=== PATIENT | female | born 1975 | race Caucasian/White ===

== ENCOUNTER 2017-03-18 03:33 | Inpatient (IN) | payer OTHER ==
[~2017-03-18] VITALS: Ht 167.6 cm; Wt 82.1 kg
[2017-03-18] MEDS ORDERED: Oxytocin 30 Units/500 mL LR 30 UNITS in IV Premix 1 EACH IV PRN (04:05)
[2017-03-18] MEDS ORDERED: Lactated Ringer's 1,000 ML IV PRN (04:05)
[2017-03-18] MEDS ORDERED: Hemorrhage Kit, Post Partum XX ONE (04:05)
[2017-03-18] MEDS ORDERED: Carboprost 250 mCg/mL Inj IM PRN (04:05)
[2017-03-18] MEDS ORDERED: Sodium Chloride LOK Flush 10 mL Syringe IVFLUSH PRN (04:05)
[2017-03-18] MEDS ORDERED: Methylergonovine 0.2 mg/mL Inj IM PRN (04:05)
[2017-03-18] MEDS ORDERED: Oxytocin 10 Unit/mL Inj IM PRN (04:05)
[2017-03-18 05:18] LABS: Mean Corpuscular Hemoglobin 30.8 pg (27.0-35.0); Mean Corpuscular Volume 91.1 fL (81-100)
--- NOTE | 2017-03-18 14:20 | PCM.HPOB ---
Subjective Referring Provider: Admitting Physician: Sofia Sierra MD Primary Care Physician: Nona Stubbs ND, LAc Attending Physician: Sofia Sierra MD Chief Complaint "water broke" History of Present History of Present Illness Ms. Rojas is a 41 y/o woman with history of antiphospholipid antibodies at 37 weeks 5 days gestation who presented to the [facility] for spontaneous rupture of membranes at around midnight. She states that it was a clear, pink tinged fluid. She is having regular contractions and they are getting more intense. Her SHANI is 04/03/2017 based on LMP. Her has been complicated by advanced maternal age and antiphospholipid antibody syndrome. She was also followed by maternal medicine. She has been having biweekly NSTs. She does not have fever, chills, headache, blurred vision, cough , sore throat, upper abdominal pain, worsening swelling, rash, or numbness/ tingling anywhere. She had a previous for breech position. She desires a trial of labor after and does not want any pain medications , including an epidural, at this time. A TOLAC consent was signed in the office. She only wants intermittent monitoring. She last took heparin at 9:30 PM yesterday. She reported to nursing that she will not accept antibiotics even if she is GBS positive. From her outpatient medical records, growth US done on 03/08/2017 showed bilateral renal pelviectasis (measuring 7 mm on the right and 8 mm on the left), BPD and head circumference are at the upper limits of normal, and EFW 62%. She refused a 1 hour glucose tolerance test, and instead, she was checking her blood sugars at home. She reported normal fasting and postprandial levels. She was switched from Lovenox to heparin 10,000 BID at 36 weeks gestation. She did not want to schedule an induction at 39-40 weeks. She is OK with general anesthesia if it is an emergency. She was undecided about receiving Tdap vaccine and did not receive it during . labs: blood type A positive, first trimester antibody screen negative, Pap smear negative, Varicella immune and Varicella IgM borderline, Rubella immune, RPR nonreactive, HBsAg negative, HIV nonreactive, chlamydia and gonorrhea negative, hepatitis C negative, TSH 1.560, HgbA1c 5.2%, GBS pending OB History: (5), Para (1), Term (0), Pre-term (0), ( 3), Living (1) Obstetrical Complications: Autoimmune Disease (antiphospholipid antibodies) Past Medical History Obstetrical History: History of 1 spontaneous and 2 missed abortions secondary to antiphospholipid antibody syndrome Primary section for breech position, her son was 40 weeks 0 days and weighed 6 lbs 14 oz, 18 years ago Gynecologic History: No history of STIs No history of abnormal Pap smears Medical History: Antiphospholipid antibody syndrome History of thyroid dysfunction, resolved and not taking medication Surgical History: Tonsillectomy [place] teeth removal Excess breast tissue removal Lasik Smoking Status: Never Smoker Hx Alcohol Use: No Hx Substance Use: No Past Family History Family History Diabetes mellitus on maternal side Mother, father, and 3 siblings in good health Review of Systems Constitutional: Y: Chills, Fever, Weakness Eyes: Denies: Blurred Vision, Double Vision, Vision Changes ENT: Denies: Throat Pain Cardiovascular: Denies: Chest Pain Respiratory: Denies: Cough Gastrointestinal: Denies: Abdominal Pain, Epigastric pain Genitourinary: Denies: Dysuria Musculoskeletal: Denies: Swelling Skin: Denies: Rash Neurological: Denies: Dizziness, Numbness Medications Home medications Pediatric multivitamin Heparin 10,000 BID (last dose taken at 09:30 PM on 03/17/17) Allergy Coded Allergies: No Known Allergies (Unverified , 03/18/17) Exam Vital Signs Vital signs from this mornin.6 degrees C, BP 112/77, HR 873 bpm, RR 18 Exam FHR 120-130s baseline with moderate variability, accelerations, no decelerations. Category I tracing. Uterine contractions every 3-5 minutes. Constitutional: Well-developed, Well-nourished, Normal habitus HEENT: Atraumatic, EOMI, Scleral Anicteric, Mucous Membr Moist/[place] Lungs: Clear to Auscultation, Normal Air Movement Heart: Exam Unremarkable, Regular Rate/Rhythm, Normal S1, Normal S2, No Murmurs /Rubs/Gallops Abdomen: Gravid, Normal bowel sounds, Soft, No tenderness Extremities: Pulses Palpable x4, Warm, No Edema Neurological/Psychiatric: Alert, Oriented X3, Cooperative, No Acute Distress Neuro: Grossly Neurologically Intact Additional Information Cervical exam this mornin cm dilated, 10 effacement, -3 position Labs/Diagnostics Labs Item Value Date Time White Blood Count 8.5 th/mm3 03/18/17 0500 Red Blood Count 3.80 mil/mm3 L 03/18/17 0500 Hemoglobin 11.7 g/dL L 03/18/17 0500 Hematocrit 34.6 % L 03/18/17 0500 Platelet Count 177 denia/L 03/18/17 0500 Maternal Blood Type: A (positive) Antibody Screen: Negative in first trimester Group B Strep Results: Sent, awaiting results Previous Infant with GBS: No Rubella: Immune Lab History: Negative for: Hx Gonorrhea, Hx HIV, Hx Herpes, Hx Syphilis OB Intrapartum Assessment/Plan Assessment 1. 41 y/o woman with history of antiphospholipid antibodies at 37 weeks 5 days gestation who presented to the [facility] for spontaneous rupture of membranes. has been complicated by advanced maternal age and antiphospholipid antibody syndrome. - Normal uterine activity with cervix dilated at 1 cm with -3 position. monitoring shows category I tracing. - Discussed and recommended augmentation of labor with patient this morning, which was around 7 hours after ROM, and patient refused at that time. Reviewed with patient the risks, including infection and blood clots, of delaying augmentation after ROM and being without heparin. Also advised patient that once Pitocin is started, FHR monitoring will have to be continuous. Patient requested at that time to wait 5-6 hours to see if she was ready for Pitocin later in the day. Discussed and recommended augmentation of labor a second time with patient in the afternoon, and patient refused Pitocin. Patient requested to wait until her arrives from [place] to start Pitocin. Reviewed risks of delaying augmentation of labor again with patient. Patient verbalized understanding of risks both times. - If FHR changes from category I tracing and safety is at risk, will likely need to involve risk management for input in how to proceed - GBS results pending. Patient, at this time, reports that she will refuse antibiotics if the results are positive. Will discuss again with patient if results come back positive. - Patient wants to have a natural labor and delivery. She does not want pain medications. She does not want an epidural. 2. Antiphospholipid antibody syndrome - Patient is to wear SCDs when in bed or in room, but if she is up walking, then she does not need to wear SCDs - Most likely, patient will be discharged on Lovenox and aspirin VTE Mechanical Devices: Intermittant Pneumatic CD Attending Statement This is a 41 yo female, at 39 week , ROM at 1am. She has history of one c/section for breech presentation 18 years ago and history of SAB x3. She was diagnosed APLS and was placed on levnox during . This was switched to heparin 10,000 bid. Last dose 9pm last night. She desire for ToLAC. I saw her for the last 2 visits in office and discussed extensively about issues regarding labor and delivery. I discussed with her again today for multiple times. It summarize as below: 1. Grossly ruptured at 1am, I strongly recommend to start IOL nena. I talked with her at 8am when I start my shift. She want to wait for at least 5-6 hrs until she feels she's ready for the induction. I discussed with her the reason to start induction nena, which include: try to decrease the risk of chorioamnionitis, decrease the chance of DVT by shortening the labor process. She understood but firmly declined induction at that time. I went to discuss with her again at 1pm. This is 12 hrs after ROM. She would like to wait for her to come in , who is on the way per patient and she predicted he should be arriving at 3pm. Again explained medical advice will be start nena. She still declined. Her eventually arrived at 6pm. She was examined by nurse. Her cervical examination had no change compare to 3am this morning, which was finger tip/long/bloatable head station. She agreed for induction with pitocin at 7pm. 2. GBS status. patient declined to have GBS done at 36 weeks. It was done at last visit and at admission, it was not resulted yet. Eventually the result was abtained from [place]. It was negative. 3. APLS: heparin last dose at 9pm last night. I discussed with anesthsoilogist. At this time, there 's no concern for increased risk of bleeding for epidural or spinal. But patient has talked with me in office and today again that she 99 % won't want to have epidural for pain. 4. ToLAC: patient has previous c/section for breech presentation. The calculated successful rate was about 70%. Although her cervix is not favorable , at her status now, I will still do pitocin induction. I did talk with her that long cervix with high station, she may have increased risk for failed induction. Patient understood. She understood that she may need c/ section for delivery. 5. monitor during labor: when she's not in active labor, I will allow her to have intermittent monitor. Continuous monitor will be needed when active labor started or pitocin started. As long as tracing and contraction could be monitored, she could ambulate. This note is written at 9:14pm. Jackie Zamarripa DO Mar 18, 2017 11:49 Sofia Sierra MD Mar 18, 2017 21:14
[2017-03-18] MEDS ORDERED: Lactated Ringer's 500 ML IV ONE (22:51)
[2017-03-18] MEDS ORDERED: Lactated Ringer's 1,000 ML IV SCH (22:51)
[2017-03-18] MEDS ORDERED: Ondansetron 2 mg/mL 2 mL Inj IVPUSH PRN (22:55)
[2017-03-18] MEDS ORDERED: EPHEDrine Sulfate 50 mg/mL Inj IVPUSH PRN (22:55)
[2017-03-18] MEDS ORDERED: Atropine 1 mg/10 mL (Code) Syringe IVPUSH PRN (22:55)
[2017-03-18] MEDS ORDERED: fentaNYL 2 mCg/mL-Bupiv 0.125% 100 ML EPIDURAL SCH (22:55)
--- NOTE | 2017-03-18 23:31 | PCM.HPANE ---
Patient Data Surgeon Admitting Provider:Sofia Sierra MD Attending Provider:Sofia Sierra MD Primary Care Physician:Nona Stubbs ND, LAc Other Provider: Reason for Visit Term Labor Check TERM LABOR CHECK Ht/WT & BMI Body Mass Index Allergies Coded Allergies: No Known Allergies (Unverified , 03/18/17) Past Anesthesia History Anesthesia History: Denies:: Abnormal Airway, Anesthesia Reactions, Difficult Intubation, Fam Anesthesia Reaction, Fam Malignant Hypertherm, Malignant Hyperthermia History History of ENT Problems?: No HEENT History: Denies:: Abnormal Airway Cataracts Difficult Intubation Dysphagia Glaucoma Hearing Problem Sinus Problem TMJ Denture Type: None Teeth Condition: Within Normal Limits Hx of Heart Problems?: No Cardiovascular History: Denies:: AICD Abdominal Aortic Aneurism Atrial Fibrillation Cardiac Surgery Chest Pain Congestive Heart Failure Coronary Artery Disease Edema Heart Murmur Hypertension Irregular Heartbeat Pacemaker Peripheral Vascular Rheumatic Fever Thrombophlebitis Valvular Heart Disease Hx of Respiratory Problem?: No Respiratory History: Denies:: Asthma COPD Chest Surgery Cough Dyspnea Emphysema Hemoptysis Oxygen Administration Pneumonia Pulmonary Embolism Tuberculosis Use of C-PAP Machine Use of Inhalers / NEBS Hx Neurologic Problems?: No Neurological History: Denies:: Alzheimer's Disease CVA Dementia Dizziness Headaches Multiple Sclerosis Parkinson's Disease Peripheral Neuropathy Seizures TIA Hx of GI Problems?: No Gastrointestinal History: Denies:: Cirrhosis Diverticulitis Gall Bladder Disease Gastroesphageal Reflux Gastrointestinal Bleeding Heartburn Hepatitis Hiatal Hernia Liver Disease Rectal Bleeding Hx of Problems?: No Genitourinary History: Denies:: HX of Hemodialysis Kidney Stones Urinary Tract Infection Female Hx: Positive for:: Currently Skin History: Denies:: History Skin Disorders? Pressure Ulcers Hx Musculoskeletal Problems?: No Musculoskeletal History: Denies:: Back Injury Degenerative Joint Fibromyalgia Joint Replacement Musculoskeletal Trauma Myasthenia Gravis Osteoarthritis Rheumatoid Arthritis Systemic Lupus Hx of Psycho/Social Problems?: No Psycho Social History: Denies:: Anxiety Bipolar Disorder Hx Depression Suicide Attempt Hx Surgeries?: Yes Hx Any Other Health Problems?: Yes (antiphospholipid antibody syndrome) Other History: Denies:: Cancer Endocrine Disease Hospitalization Thyroid Disease History Blood Transfusions: Denies:: Accept Blood Products? Blood Transfuse Reaction Blood Transfusions Hx Diabetes: No Hx Alcohol Use: NoHx Substance Use: No Smoking Status: Never Smoker Stop/Bang Risk Assessment Category Category 1A: Patient has history of documented sleep apnea, and HAS NOT received any narcotic, sedative or anesthesia administration during this stay. Category 1B: Patient has history of documented sleep apnea, and HAS received any narcotic , sedative or anesthesia administration during this stay Category 2: Patient has SUSPECTED Obstructive Sleep Apnea, and HAS received any narcotic , sedative or anesthesia administration during this stay. Category 3: Patient has SUSPECTED Obstructive Sleep Apnea and HAS NOT received narcotic, sedative or anesthesia administration during this stay. Category 4: Outpatient in Procedural Areas with known sleep apnea or who screen positive for High Risk via the STOP/BANG questionnaire. Exam Exam General Appearance: Alert, Oriented X3, Cooperative, No Acute Distress HEENT/AIRWAY: MP 2 Lungs: Clear to Auscultation, Normal Air Movement Heart: Exam Unremarkable, Regular Rate/Rhythm, Normal S1, Normal S2, No Murmurs /Rubs/Gallops Meds/Labs/Diagnostics Labs Test 03/18/17 05:00 White Blood Count 8.5th/mm3 (3.8-10.1) Red Blood Count 3.80mil/mm3 (3.90-5.20) Hemoglobin 11.7g/dL (12.0-15.6) Hematocrit 34.6% (35.0-46.0) Mean Corpuscular Volume 91.1fL (81-100) Mean Corpuscular Hemoglobin 30.8pg (27.0-35.0) Mean Corpuscular Hemoglobin Concent 33.8% (32.0-37.0) Red Cell Distribution Width 12.8% (12.3-15.4) Platelet Count 177bil/L (150-400) Plan Impression Patient chart reviewed, patient interviewed and anesthestic plan with risks, benefits, and alternatives discussed, and informed consent obtained. ASA Physical Status: ASA2 Mod Systemic Disease Anesthetic Plan: Epidural Bene/Risks/Altern/Consents: Yes HP Complete Prior to Induction: Yes Kavin Greenwood MD Mar 18, 2017 22:51
[2017-03-19] MEDS ORDERED: Sodium Chloride LOK Flush 10 mL Syringe IVFLUSH SCH (00:30)
[2017-03-19] MEDS ORDERED: Lactated Ringer's 1,000 ML IV SCH (05:18)
[2017-03-19] MEDS ORDERED: Oxytocin 30 Units/500 mL LR 30 UNITS in IV Premix 1 EACH IV PRN (05:20)
[2017-03-19] MEDS ORDERED: Methylergonovine 0.2 mg/mL Inj IM PRN (05:20)
[2017-03-19] MEDS ORDERED: Hemorrhage Kit, Post Partum XX ONE (05:20)
[2017-03-19] MEDS ORDERED: Benzocaine (Dermoplast) 20% 60 Gm Spray TOPICAL PRN (05:20)
[2017-03-19] MEDS ORDERED: Carboprost 250 mCg/mL Inj IM PRN (05:20)
[2017-03-19] MEDS ORDERED: Witch Hazel-Glycerin Pads TOPICAL PRN (05:20)
[2017-03-19] MEDS ORDERED: Oxytocin 10 Unit/mL Inj IM PRN (05:20)
[2017-03-19] MEDS ORDERED: LANOlin HPA 7 Gm Ointment TOPICAL PRN (05:20)
--- NOTE | 2017-03-19 08:10 | OP ---
[address] [address] OPERATIVE REPORT PATIENT: YASMINE VICENTE : 1975 MR#: [id number] ADMIT: 03/18/2017 JOB ID: [id number] DATE OF SURGERY: 03/19/2017 SURGEON: Sofia Sierra MD. PREOPERATIVE DIAGNOSIS(ES): POSTOPERATIVE DIAGNOSIS(ES): DELIVERY NOTE: This is a 41-year-old female. She is now 5, para 2. She was admitted to the [facility] on March 18, 2017, for premature rupture of membranes at 1 a.m. After admission, induction was not started until 7 p.m. on March 18, 2017, because she declined before that. After Pitocin started, the patient has started to gradually have regular contractions. Her cervix started dilation gradually. During the labor process her heart tracing was mostly reassuring. She was noticed to be fully dilated and started to have the urge to push. She was allowed to push. There was gradually descent of head. The eventually delivered in SUDHIR position. The shoulders and chest delivered without difficulty. The infant was placed on mother's chest. The cord was clamped and cut when the pulse disappeared of the cord. Regular cord blood collected. Then, the placenta delivered completely spontaneously. The cord was examined and noted to have three vessels. After the placenta delivered, the uterus was well contracted. At this time, the perineum was examined, and it was noticed there was a mild skin laceration on the right side. This laceration was repaired by 4-0 Monocryl subcutaneously. The patient tolerated the delivery well. All instruments, needles, laps and gauzes counted correct twice. The EBL during the delivery was 150 cc. The scores were 8 and 9. The weight was not available at dictation. PLAN: We will continue routine care, monitor vaginal bleeding. We will restart her back on Lovenox 40 mg daily subcu injection from 11 a.m. this morning. That would be six hours after delivery. At the same time, we will monitor the vaginal bleeding. If there is heavy bleeding, it could be delayed for another 6 hours.
[2017-03-20] MEDS: HYDROcodone-APAP 5-325 mg Tablet PO PRN ×2 (00:42→04:46)
[2017-03-20 07:11] LABS: Mean Corpuscular Hemoglobin 30.6 pg (27.0-35.0); Mean Corpuscular Volume 90.3 fL (81-100)
--- NOTE | 2017-03-20 09:34 | PCM.DIOB ---
Obstetrical Disch Instruction Date of Service: Mar 20, 2017 Dates of Hospitalization Date of Hospital Admission Mar 18, 2017 at 03:40 Providers Admitting Physician: Sofia Sierra MD Primary Care Physician: Nona Stubbs ND, LAc Attending Physician: Sofia Sierra MD Discharge Diagnosis Discharge Diagnosis s/p PPD1 Post Operative diagnosis s/p VBAX PPD1 Problems: Diet Discharge Diet: No restrictions Activity Discharge Activity-General: Pelvic Rest for 6 weeks, Try not to overdue, Be up and about Dressing and Incisional Care Hygiene: May shower, NO bathtub, hot tub or whirlpool Additional Instructions Discharge Instructions Please call office or go to ER if heavy vaginal bleeding, severe abdominal pain , foul smelling discharge, fever more than 100.4 or short of breath Please continue Lovenox 40mg daily for next 6 weeks. If bleeding heavier, try to stop motrin for control. I prescribed you motrin and vicodin for possible pain. Follow Up Plan Follow Up Plan 6 weeks in office Follow-up appointment: Weeks (6) Sofai Sierra MD Mar 20, 2017 09:34
[2017-03-20] MEDS ORDERED: IBUP-1827 PO (09:37)
[2017-03-20] MEDS ORDERED: HYDR-3091 PO (09:37)
--- NOTE | 2017-03-20 17:31 | DIS ---
[address] [address] DISCHARGE SUMMARY PATIENT: YASMINE VICENTE : 1975 MR#: [id number] ADMIT: 03/18/2017 JOB ID: [id number] DIS: 03/20/2017 This is a 41-year-old female. She is 5, para 2 now, status post . She had vaginal delivery yesterday in the morning around 4 to 5:00. The delivery itself was not complicated. After delivery, she has been doing well. Her pain is well controlled by Motrin and Vicodin. She is well. Her vaginal bleeding was not heavy. She was ambulating well, voiding well, tolerated her diet well. PHYSICAL EXAMINATION: She has been afebrile. Her vitals in normal range. Cardiac: RR, no murmur. Pulmonary: Bilaterally clear. Abdomen soft, nontender. Uterus rashid well, one finger below her umbilicus. Lochia moderate to minimal. Extremities nontender. This is a 41-year-old female, 5, para 2, status post , day one. 1. , patient has recovered well. 2. This is complicated with APLS. The patient has being on Lovenox in , switched to heparin towards end of , and Lovenox restarted 6 hours after delivery. The plan is patient will continue with her Lovenox 40 mg daily for next six weeks. 3. We will discharge patient today to home. It was explained that she will need to continue with her Lovenox 40 mg for six weeks. She will watch her bleeding. If there is heavy vaginal bleeding, she will call office or go to the ED for evaluation. She also understands that she will need to go back to office six weeks after delivery for followup. If there is heavy vaginal bleeding, severe abdominal pain, foul-smelling discharge, fever more than 100.4, short of breath, she needs to call office or go to the ED for evaluation. 4. I prescribed patient Vicodin 15 pills, Motrin 30 pills for pain management. She is instructed that if the bleeding is heavier , she needs to stop her motrin first. She will need to call office if still heavy after. Patient has enough medication to continue her Lovenox for next six weeks. Prescription not given. MTDD
== END 2017-03-20 11:15 | disposition home or self-care (01) | DRG 775 ==
LOC: FBCO 03:33 → FBC 03:40
PROVIDERS: ADMIT Obstetrics & Gynecology; ATTEND Obstetrics & Gynecology
PROC: 10E0XZZ Delivery of Products of Conception, External Approach (ICD-10-PCS; principal; 2017-03-19)
PROC: 0HQ9XZZ Repair Perineum Skin, External Approach (ICD-10-PCS; 2017-03-19)
DX: O42.013 Preterm premature rupture of membranes, onset of labor within 24 hours of rupture, third trimester (principal); O99.113 Other diseases of the blood and blood-forming organs and certain disorders involving the immune mechanism complicating pregnancy, third trimester; D68.61 Antiphospholipid syndrome; O34.219 Maternal care for unspecified type scar from previous cesarean delivery; O09.523 Supervision of elderly multigravida, third trimester; O26.23 Pregnancy care for patient with recurrent pregnancy loss, third trimester; O70.0 First degree perineal laceration during delivery; Z3A.37 37 weeks gestation of pregnancy; Z37.0 Single live birth; Z79.01 Long term (current) use of anticoagulants